=== PATIENT | female | born 1935 | race Caucasian/White ===

== ENCOUNTER 2019-03-02 21:11 | Emergency (ER) | payer MEDICARE, BC ==
[~2019-03-02] VITALS: Ht 162.6 cm; Wt 65.8 kg
[~2019-03-02 21:11] MED LIST: CALCIUM 500+D1 EAC2 PO; CIPROFLOXACIN500 M1 PO; FISH OIL + VIT1 EACH PO; GLUCOSAMINE-CH1 EA37 PO; LISINOPRIL-HCT1 EAC1; MEVACOR 20 MG T20 MG; PYRIDIUM200 MG PO
[2019-03-02] MEDS ORDERED: TRAMADOL 50 MG50 MG PO (21:24)
[2019-03-02 21:35] LABS: URINE BILIRUBIN NEGATIVE (Negative); URINE BLOOD 2+ (Negative); URINE CLARITY CLEAR; URINE COLOR YELLOW; URINE GLUCOSE-RANDOM NEGATIVE (Negative); URINE KETONES NEGATIVE (Negative); URINE PROTEIN 1+ (Negative); URINE UROBILINOGEN 0.2 E.U./dl (0.2-1.0)
[2019-03-02 21:38] LABS: URINE LEUKOCYTES-REFLEX 3+ (Negative); URINE NITRITE-REFLEX POSITIVE (Negative)
[2019-03-02 22:12] LABS: ABSOLUTE EOSINOPHILS 0.1 thou/uL (0.0-0.7); ABSOLUTE LYMPHOCYTES 1.6 thou/uL (0.8-5.3); ABSOLUTE MONOCYTES 0.5 thou/uL (0.0-1.2); ABSOLUTE NEUTROPHILS 5.5 thou/uL (1.6-8.1); BASOPHILS 0.5 %; EOSINOPHILS 1.3 %; LYMPHOCYTES 20.9 %; MCH 30.8 pg (26.0-34.0); MCHC 33.2 g/dL (28.0-37.0); MCV 92.8 fL (80.0-100.0); NUCLEATED RBCS 0 /100WBC; PLATELET COUNT* 224 thou/uL (150-400); POLYS 70.3 %; RDW-CV 13.1 % (10.5-14.5); WBC 7.8 thou/uL (4.0-11.0)
[2019-03-02] MEDS ORDERED: PYRIDIUM200 MG PO (22:22)
[2019-03-02] MEDS ORDERED: AUGMENTIN 875-1 EACH PO (22:22)
[2019-03-02 22:41] LABS: CALCIUM 9.6 mg/dL (8.5-10.1); CREATININE 1.1 mg/dL (0.6-1.3); POTASSIUM 4.1 mmol/L (3.5-5.1)
[2019-03-02 22:45] LABS: ALBUMIN 3.9 g/dL (3.4-5.0); TOTAL BILIRUBIN 0.3 mg/dL (<0.1-1.0); TOTAL PROTEIN 7.9 g/dL (6.4-8.2)
[2019-03-02 22:47] LABS: CASTS None Seen /LPF (None Seen); SQUAMOUS >10 Many /LPF (0-3)
[2019-03-02 22:48] LABS: BACTERIA-REFLEX >30 Many /HPF (None Seen); CRYSTALS None Seen /LPF (None Seen); URINE RBC >20 Many /HPF (0-2); URINE WBC-REFLEX >25 Many /HPF (0-5)
[2019-03-02 22:50] VITALS: BP 115/67
== END 2019-03-02 22:53 | disposition home or self-care (01) ==
LOC: M.ERS 21:11
PROVIDERS: Nurse Practitioner Family; Personal Emergency Response Attendant
DX: N39.0 Urinary tract infection, site not specified (principal); I10 Essential (primary) hypertension; F31.9 Bipolar disorder, unspecified; Z90.710 Acquired absence of both cervix and uterus; Z98.890 Other specified postprocedural states; Z88.1 Allergy status to other antibiotic agents

== ENCOUNTER → 2020-12-16 | Outpatient (CLI) | payer MEDICARE, BC ==
[~2020-12-16] MED LIST changes: +AUGMENTIN 875-1 EACH PO; +TRAMADOL 50 MG50 MG PO
== END ==
LOC: M.MRI 11:30
PROVIDERS: ATTEND Psychiatry & Neurology Neurology
DX: G25.0 Essential tremor (principal)